=== PATIENT | female | born 1945 | race Caucasian/White ===

== ENCOUNTER → 2018-07-16 | Day surgery (SDC) | payer OTHER, MEDICARE ==
[~2018-07-16] VITALS: Ht 152.4 cm; Wt 79.4 kg
[~2018-07-16] MED LIST: ANORO ELLIPTA1 EACH; FOLIC ACID1 M1 PO; MOBIC15 MG PO; PREDNISONE1 MG PO
--- NOTE | 2018-07-16 09:32 | Operative Report ---
Operative/Inv Procedure Report Surgery Date: 07/16/18 Name of Procedure: cystoscopy: hydrodistention Pre-Operative Diagnosis: hx bladder cancer Post-Operative Diagnosis: same Estimated Blood Loss: scant Surgeon/Human Factors Engineer: Donny Nix MD Anesthesia: moderate sedation Specimens: urine cytology Complications: none Operative/Procedure Note Note: The patient was taken to the operative room and placed on the OR table in supine position. Timeout was performed; with the patient awake, in order to confirm correct identity, procedure, anesthesia, antibiotics, as well as any other pertinent information. After adequate anesthesia, and antibiotics, the patient was then placed lithotomy stirrups, draped and prepped in the usual surgical fashion. A 22 [place] cystoscope sheath with a 30 angle lens was inserted into the urethra and advanced into the bladder without difficulty. The bladder free of tumor, free of stone, with bilateral clear ureter efflux. The bladder was then hydrodistended 2 with the irrigation fluid at 40 cm above the symphysis pubis. No evidenc of increased petechiae, nor Hunner's ulceration was noted. Both ureteral orifices had clear reflux. No terminal bleed with drainage. Bladder capacity was normal. The bladder was then drained and the cystoscope was removed under direct visualization. All sponge, needle, and instrument count were correct at the end of the case. The patient tolerated procedure well, and was taken to recovery room in satisfactory condition. Discharge Disposition: Same Day Admissions CC: Donny Nix MD
== END ==
LOC: STS 01:45
DX: Z85.51 Personal history of malignant neoplasm of bladder (principal); R82.8 Abnormal findings on cytological and histological examination of urine; J44.9 Chronic obstructive pulmonary disease, unspecified; Z87.891 Personal history of nicotine dependence; M06.9 Rheumatoid arthritis, unspecified
CPT/HCPCS: 88305; 93005; 93010; J0696; J2250